=== PATIENT | male | born 1980 | race Caucasian/White ===

== ENCOUNTER 2023-06-15 07:21 | Day surgery (SDC) | payer BC, OTHER ==
[~2023-06-15 07:21] MED LIST: Lactated Ringers 1,000 ML IV SCH
[2023-06-15] MEDS ORDERED: propofoL 50 ML ONE (09:11)
[2023-06-15] MEDS ORDERED: Glycopyrrolate 0.2 MG/ML SDV ONE (09:22)
[2023-06-15] MEDS ORDERED: Ondansetron 4 MG/2 ML SDV ONE (09:24)
[2023-06-15] MEDS ORDERED: Ketorolac 30 MG/ML SDV ONE (09:24)
== END 2023-06-15 10:00 | disposition home or self-care (01) ==
LOC: MW.SDS 07:21
PROVIDERS: ATTEND Surgery
DX: D12.2 Benign neoplasm of ascending colon (principal); K63.5 Polyp of colon; K62.5 Hemorrhage of anus and rectum; K58.9 Irritable bowel syndrome, unspecified; F41.9 Anxiety disorder, unspecified; Z79.899 Other long term (current) drug therapy
CPT/HCPCS: 45380; J0131; J1885; J2405; J2704; J3490; J7120; 00811